=== PATIENT | female | born 1985 | race Caucasian/White ===

== ENCOUNTER 2017-08-02 15:31 | Outpatient (CLI) | END 2017-08-02 17:55 | disposition home or self-care (01) ==

== ENCOUNTER 2017-08-25 09:58 | Outpatient (CLI) | END 2017-08-25 11:32 | disposition home or self-care (01) ==

== ENCOUNTER 2017-09-11 21:20 | Inpatient (IN) | END 2017-09-15 11:45 | disposition home or self-care (01) | DRG 765 ==